=== PATIENT | female | born 1995 | race Caucasian/White ===

== ENCOUNTER → 2020-01-24 | Outpatient (CLI) | payer MEDICAID ==
[~2020-01-24] MED LIST: FERR325T5 PO; KETO75CA PO; NITR-65 PO; PREN1TAB86 PO
--- NOTE | 2020-01-25 11:30 | Diagnostic Imaging Report ---
PROCEDURE: US OB SINGLE FETUS <14 WKS. TECHNIQUE: Multiple real-time grayscale images were obtained over the gravid uterus in various projections. INDICATION: dating. There is an intrauterine gestational sac containing a pole. Middleberg-rump length measurement is 19 mm consistent with 8 weeks 4 days gestation. heart rate was recorded at 167 bpm. There is a small sadaf-gestational sac bleed to the right of gestational sac. The left ovary does contain a 2.4 cm cyst. No free fluid is seen. IMPRESSION: Single live IUP 8 weeks 4 days gestational age with estimated date of confinement sonographically of 08/31/2020. Note is made of a small sadaf-gestational sac hemorrhage. Dictated by: Dictated on workstation # [id number]
== END ==
LOC: RAD 13:30
PROVIDERS: ATTEND Family Medicine
DX: Z34.81 Encounter for supervision of other normal pregnancy, first trimester (principal); Z3A.08 8 weeks gestation of pregnancy
CPT/HCPCS: 76801

== ENCOUNTER → 2020-04-03 | Outpatient (CLI) | payer MEDICAID ==
--- NOTE | 2020-04-03 15:57 | Diagnostic Imaging Report ---
INDICATION: survey. TECHNIQUE: Multiple real-time grayscale images were obtained over the gravid uterus. COMPARISON: 01/24/2020. FINDINGS: There is a single live fetus in a transverse presentation, head to maternal right. heart rate was recorded 132 bpm. Placenta is anterior and to the left. Amniotic fluid volume is normal. survey demonstrates kidneys, bladder and stomach to be unremarkable. brain is unremarkable. There is a four-chamber heart. There is a three-vessel cord with normal insertion. spine is unremarkable. Maternal adnexa are unremarkable. Biometrical measurements are as follows: Biparietal 4.53 cm, age 19 weeks 5 days. Head circumference 16.32 cm, age 19 weeks 1 days. Abdominal circumference 13.21 cm, age 18 weeks 6 days. Femur length 2.93 cm, age 19 weeks 1 days. Sonographic estimate age: 19 weeks 2 days. Sonographic estimated date of delivery: 08/26/2020. Estimated Weight: 264 gm (+/- 39 gm). LMP percentile: 66%. heart rate: 132 beats per minute. number: 1 of 1. IMPRESSION: Single live IUP at 19 weeks 2 days gestational age showing normal interval growth when compared with prior ultrasound. No complicating features are seen. Dictated by: Dictated on workstation # [id number]
== END ==
LOC: RAD 14:48
PROVIDERS: ATTEND Family Medicine
DX: Z34.92 Encounter for supervision of normal pregnancy, unspecified, second trimester (principal); Z3A.19 19 weeks gestation of pregnancy
CPT/HCPCS: 76805

== ENCOUNTER 2020-08-31 14:10 | Inpatient (IN) | payer MEDICAID ==
[2020-08-31] VITALS (40 sets, daily range): BP systolic 99–134; BP diastolic 57–89
[~2020-08-31] VITALS: Ht 157.5 cm; Wt 107.7 kg
[2020-08-31] MEDS ORDERED: LACTATED RINGERS 1,000 ML IV ONE ×2 (14:37→15:45)
[2020-08-31] MEDS ORDERED: D5 LR IV SOLUTION 1,000 ML IV SCH (15:00)
[2020-08-31] MEDS ORDERED: MINERAL OIL CONCENTRATE 99.9% 15 ML UDC TOP PRN (15:00)
[2020-08-31 15:05] LABS: BASOPHILS % (AUTO) 0 % (0-10); EOSINOPHILS # (AUTO) 0.1 10^3/uL (0.0-0.3); EOSINOPHILS % (AUTO) 1 % (0-10); HEMATOCRIT 34 % (35-52); HEMOGLOBIN 11.1 g/dL (11.5-16.0); LYMPHOCYTES # (AUTO) 1.7 10^3/uL (1.0-4.0); LYMPHOCYTES % (AUTO) 15 % (12-44); MEAN CORPUSCULAR HEMOGLOBIN 28 pg (25-34); MEAN CORPUSCULAR HGB CONC 33 g/dL (32-36); MEAN CORPUSCULAR VOLUME 84 fL (80-99); MEAN PLATELET VOLUME 12.1 fL (9.0-12.2); MONOCYTES # (AUTO) 0.7 10^3/uL (0.0-1.0); MONOCYTES % (AUTO) 6 % (0-12); NEUTROPHILS # (AUTO) 8.6 10^3/uL (1.8-7.8); NEUTROPHILS % (AUTO) 77 % (42-75); PLATELET COUNT 162 10^3/uL (130-400); WHITE BLOOD COUNT 11.1 10^3/uL (4.3-11.0)
[2020-08-31] MEDS ORDERED: fentaNYL 2 mcg/ml BUPIVA 0.125 100 ML ONE (15:25)
[2020-08-31] MEDS ORDERED: BUPIVACAINE 0.25% 30 ML (SENSORCAINE) VIAL ONE (15:31)
[2020-08-31] MEDS ORDERED: fentaNYL INJ 100 MCG/2 ML AMP ONE (15:31)
--- NOTE | 2020-08-31 15:40 | History & Physical-OB ---
OB - Chief Complaint & HPI Date/Time Date of Admission: Date of Admission: Aug 31, 2020 at 14:44 Date seen by a Provider: Aug 31, 2020 Time Seen by a Provider: 15:40 Chief Complaint/History OB-Reason for Admission/Chief: Onset of Labor Hx : 2 Hx Para: 1 Expected Date of Delivery: Aug 31, 2020 Gestational Age in Weeks: 40 Gestational Age in Days: 0 Admission Nurse Assessment Rev: Yes History of Labs GBS negative Allergies and Home Medications Allergies Coded Allergies: No Known Drug Allergies (Unverified , 09/26/14) Home Medications Ferrous Sulfate 325 Mg Tablet.dr, 325 MG PO BID, (Reported) Vit W-Ca,Fe,FA(<1 mg) 1 Each Tablet, 1 EACH PO DAILY, (Reported) Patient Home Medication List Home Medication List Reviewed: Yes OB - History Hx of Present Care: Yes Ultrasounds: Normal mid trimester US Obstetrical Complications: None Medical Complications: None Delivery History Hx Blood Disorders: No Adverse Rxn to Tranfusion: No Patient Past Medical History No chronic medical problems Immunizations Tetanus Booster (TDap): Unknown Date of Influenza Vaccine: Mar 07, 2016 OB - Admission Exam Physical Exam HEENT: Moist Membranes Heart: Rhythm Normal Lungs: Clear Abdomen: Gravid Cervical Dilatation: 5cm Effacement: 75% Station: -3 Membranes: Intact Accelerations: Accelerations Present Decelerations: No Decelerations Short Term Variability: Present Type Casting Machine Operator Variability: Average (6-25) Contractions on Admission: 6-10 Minutes Apart Intensity: Moderate Labs Laboratory Tests Test 08/31/20 14:50 Range/Units White Blood Count 11.1 H 4.3-11.0 10^3/uL Red Blood Count 4.01 3.80-5.11 10^6/uL Hemoglobin 11.1 L 11.5-16.0 g/dL Hematocrit 34 L 35-52 % Mean Corpuscular Volume 84 80-99 fL Mean Corpuscular Hemoglobin 28 25-34 pg Mean Corpuscular Hemoglobin Concent 33 32-36 g/dL Red Cell Distribution Width 14.4 10.0-14.5 % Platelet Count 162 130-400 10^3/uL Mean Platelet Volume 12.1 9.0-12.2 fL Immature Granulocyte % (Auto) 1 % Neutrophils (%) (Auto) 77 H 42-75 % Lymphocytes (%) (Auto) 15 12-44 % Monocytes (%) (Auto) 6 0-12 % Eosinophils (%) (Auto) 1 0-10 % Basophils (%) (Auto) 0 0-10 % Neutrophils # (Auto) 8.6 H 1.8-7.8 10^3/uL Lymphocytes # (Auto) 1.7 1.0-4.0 10^3/uL Monocytes # (Auto) 0.7 0.0-1.0 10^3/uL Eosinophils # (Auto) 0.1 0.0-0.3 10^3/uL Basophils # (Auto) 0.0 0.0-0.1 10^3/uL Immature Granulocyte # (Auto) 0.1 0.0-0.1 10^3/uL OB - Assessment/Plan/Diagnosis Assessment Assessment: active labor Admission Dx 1. IUP at term 40 weeks Admission Status: Inpatient Order (span 2 midnights) Reason for Inpatient Admission: L&D Plan Plan: Expectant Management Induction Method: AROM Other Plan -epidural planned JEREMÍAS BARROW MD Aug 31, 2020 15:40
[2020-08-31] MEDS ORDERED: CATHETER FLUSH 10 ML SYR IV PRN (15:45)
[2020-08-31] MEDS ORDERED: NALOXONE 0.4 MG/ML 1 ML (NARCAN) VIAL IV PRN (15:45)
[2020-08-31] MEDS ORDERED: fentaNYL 2 mcg/ml BUPIVA 0.125 100 ML IV SCH (15:45)
[2020-08-31] MEDS ORDERED: OXYTOCIN PRE-MIX DRIP 500 ML IV ONE (17:00)
[2020-08-31] MEDS ORDERED: OXYTOCIN PRE-MIX DRIP 500 ML IV SCH ×2 (17:15→21:00)
[2020-08-31] MEDS ORDERED: LIDOCAINE/EPI 2% 1:200,00 (XYLOCAINE) 10 ML VIAL ONE (20:13)
--- NOTE | 2020-08-31 20:46 | OB Labor & Delivery Record ---
L&D History Date of Service Date of Service: Aug 31, 2020 History Expected Date of Delivery: Aug 31, 2020 Gestational Age in Weeks: 40 Hx : 2 Hx Para: 2 Complications Events: Routine care Operative Indications (Cesarea: N/A-Vaginal Delivery Intrapartal Events: None L&D Stage1 Stage One Onset of Labor - Date: Aug 31, 2020 Onset of Labor - Time: 06:00 Monitors and Tracing Monitor Mode: Internal Heart Rate: 130 Monitor Accelerations: Uniform Monitor Decelerations: Variable Station: -1 Corporate Law Specialist Variability: Average (6-10) Short Term Variability: Present Presentation: Vertex Vital Signs VS - Last 72 Hours, by Label 08/31/20 14:26 Temp 36.8 Pulse 80 Resp 20 B/P (MAP) 122/71 (88) Pulse Ox 97 O2 Delivery Room Air Signs of Distress by FHT Signs of Distress none Rupture of Membranes Spontaneous Ruture of Membrane: No Amniotic Membrane Rupture Time: 16:30 Amniotic Membrane Fluid Desc.: Meconium Stained Vaginal Bleeding Description: None Induction/Anesthesia Epidural Cath Placement - Time: 1600 L&D Stage2 Stage Two Stage II Date: Aug 31, 2020 Stage II Time: 20:28 Monitors and Tracing Monitor Mode: Internal Heart Rate: 130 Monitor Accelerations: Uniform Monitor Decelerations: Variable Corporate Law Specialist Variability: Average (6-10) Short Term Variability: Present Position: Left Occiput Anterior Presentation: Vertex Signs of Distress by FHT Signs of Distress none Cord Descript/Complications Cord Vessel Description: 3 Vessels Delivery Type Delivery Method: Spontaneous Vaginal Anterior Shoulder: Left Episiotomy/Perineal Laceration Laceraction(s)/Extensions: Yes Episiotomy Description: Periurethral Extnsion/lac (bilateral) Condition of Delivery 1 minute Comment: 8 5 minute Comment: 9 Condition of Condition of : Living Exam: No Observed Abnormalities Resuscitation Resuscitation: N/A - Spontaneous Resp L&D Stage3 Stage Three Stage III Date: Aug 31, 2020 Stage III Time: 20:32 Pictocin Pitocin Administration mu/min: 10 Pitocin ml/hr: 10 Pitocin Administration Comment: [id number] OXYTOCIN INFUSION STARTED PER ROUTINE PROTOCOL Placenta Delivery Placenta Delivery: Spontaneous Delivery Summary Summary Estimated blood loss (mL): 200 Condition of Delivery Examined: Cervix Examined Post Hemorrhage: No Intervention Required none JEREMÍAS BARROW MD Aug 31, 2020 20:46
[2020-08-31] MEDS ORDERED: TETANUS,DIPTH,PERTUSS P/F (BOOSTRIX) 0.5 ML VIAL IM ONE (21:00)
[2020-08-31] MEDS ORDERED: WITCH HAZEL(TUCKS) 40 EA JAR TOP PRN (21:00)
[2020-08-31] MEDS ORDERED: BENZOCAINE/MENTHOL (DERMOPLAST) 56 ML CAN TP PRN (21:00)
[2020-08-31] MEDS ORDERED: MEASLES,MUMPS,RUBELLA 1 EA INJ SQ ONE (21:00)
[2020-08-31] MEDS ORDERED: CATHETER FLUSH 10 ML SYR IV SCH ×2 (22:00)
[2020-08-31] MEDS: IBUPROFEN 600 MG (MOTRIN) TAB PO SCH (23:21)
[2020-08-31] MEDS: ACETAMINOPHEN 500 MG TAB (TYLENOL) PO SCH (23:21)
[2020-09-01] MEDS: DOCUSATE SODIUM 100 MG (COLACE) CAP PO SCH ×2 (00:55→09:25)
[2020-09-01 02:00] VITALS: BP 115/78
[2020-09-01 05:54] LABS: BASOPHILS % (AUTO) 0 % (0-10); EOSINOPHILS # (AUTO) 0.1 10^3/uL (0.0-0.3); EOSINOPHILS % (AUTO) 1 % (0-10); HEMATOCRIT 31 % (35-52); LYMPHOCYTES # (AUTO) 1.7 10^3/uL (1.0-4.0); LYMPHOCYTES % (AUTO) 16 % (12-44); MEAN CORPUSCULAR HEMOGLOBIN 28 pg (25-34); MEAN CORPUSCULAR HGB CONC 32 g/dL (32-36); MEAN CORPUSCULAR VOLUME 86 fL (80-99); MEAN PLATELET VOLUME 12.4 fL (9.0-12.2); MONOCYTES # (AUTO) 0.7 10^3/uL (0.0-1.0); MONOCYTES % (AUTO) 7 % (0-12); NEUTROPHILS # (AUTO) 8.1 10^3/uL (1.8-7.8); NEUTROPHILS % (AUTO) 76 % (42-75); PLATELET COUNT 128 10^3/uL (130-400); WHITE BLOOD COUNT 10.6 10^3/uL (4.3-11.0)
[2020-09-01] MEDS: ACETAMINOPHEN 500 MG TAB (TYLENOL) PO SCH ×3 (07:05→18:53)
[2020-09-01] MEDS: IBUPROFEN 600 MG (MOTRIN) TAB PO SCH ×3 (07:06→18:53)
--- NOTE | 2020-09-01 08:16 | Progress Note ---
Subjective Date Seen by a Provider: Sep 01, 2020 Time Seen by a Provider: 08:00 Subjective/Events-last exam no complaints. no significant vaginal bleed Objective Exam Vital Signs Date Time Temp Pulse Resp B/P (MAP) Pulse Ox O2 Delivery O2 Flow Rate FiO2 09/01/20 02:00 36.3 75 18 115/78 (90) Room Air 08/31/20 22:45 75 18 112/71 (85) Room Air 08/31/20 22:30 36.2 67 18 113/72 (86) Room Air 08/31/20 22:15 67 18 108/66 (80) Room Air 08/31/20 22:00 68 18 114/71 (85) Room Air 08/31/20 21:45 36.1 60 18 109/75 (86) Room Air 08/31/20 21:30 68 18 117/70 (86) Room Air 08/31/20 21:15 36.0 77 18 119/74 (89) Room Air 08/31/20 20:45 93 18 134/89 (104) Room Air 08/31/20 20:30 93 18 127/86 (100) Room Air 08/31/20 20:15 65 18 125/60 (81) Room Air 08/31/20 20:00 73 18 99/57 (71) Room Air 08/31/20 19:45 71 18 103/58 (73) Room Air 08/31/20 19:30 70 18 114/75 (88) Room Air 08/31/20 19:15 70 18 126/79 (95) 99 Room Air 08/31/20 19:00 37.0 70 18 126/79 (95) 99 Room Air 08/31/20 18:45 82 18 123/65 (84) 98 Room Air 08/31/20 18:30 80 18 128/72 (90) 99 Room Air 08/31/20 18:17 69 18 117/77 (90) 100 Room Air 08/31/20 18:00 36.5 68 18 119/78 (92) 100 Non Rebreather 15.00 08/31/20 17:45 69 18 119/75 (90) 100 Non Rebreather 15.00 08/31/20 17:30 70 18 114/66 (82) 98 Non Rebreather 15.00 08/31/20 17:15 83 18 112/69 (83) 99 Room Air 08/31/20 17:00 37.3 75 18 118/66 (83) 98 Room Air 08/31/20 16:46 110 18 120/68 (85) 99 Room Air 08/31/20 16:43 88 18 112/77 (89) 99 Room Air 08/31/20 16:40 83 18 108/78 (88) 99 Room Air 08/31/20 16:37 85 18 126/73 (90) 99 Room Air 08/31/20 16:34 81 18 130/74 (92) 98 Room Air 08/31/20 16:31 98 18 123/80 (94) 98 Room Air 08/31/20 16:28 91 18 125/69 (87) 98 Room Air 08/31/20 16:24 93 18 127/65 (85) 99 Room Air 08/31/20 16:22 89 18 131/67 (88) 99 Room Air 08/31/20 16:20 80 18 130/69 (89) 99 Room Air 08/31/20 16:17 103 98 Room Air 08/31/20 16:14 82 18 116/68 (84) 99 Room Air 08/31/20 16:11 95 18 125/74 (91) 98 Room Air 08/31/20 16:08 80 18 126/68 (87) 98 Room Air 08/31/20 16:05 97 18 127/76 (93) 98 Room Air 08/31/20 15:57 37.0 98 20 129/85 (100) 98 Room Air 08/31/20 15:30 36.8 80 20 97 Room Air 08/31/20 14:26 36.8 80 20 122/71 (88) 97 Room Air I & O 09/01/20 07:00 Intake Total 1500 ml Balance 1500 ml Capillary Refill : Less Than 3 Seconds General Appearance: No Apparent Distress Results Lab Laboratory Tests 08/31/20 14:50: White Blood Count 11.1H, Red Blood Count 4.01, Hemoglobin 11.1L, Hematocrit 34L, Mean Corpuscular Volume 84, Mean Corpuscular Hemoglobin 28, Mean Corpuscular Hemoglobin Concent 33, Red Cell Distribution Width 14.4, Platelet Count 162, Mean Platelet Volume 12.1, Immature Granulocyte % (Auto) 1, Neutrophils (%) (Auto) 77H, Lymphocytes (%) (Auto) 15, Monocytes (%) (Auto) 6, Eosinophils (%) (Auto) 1, Basophils (%) (Auto) 0, Neutrophils # (Auto) 8.6H, Lymphocytes # (Auto) 1.7, Monocytes # (Auto) 0.7, Eosinophils # (Auto) 0.1, Basophils # (Auto) 0.0, Immature Granulocyte # (Auto) 0.1 09/01/20 05:34: White Blood Count 10.6, Red Blood Count 3.60L, Hemoglobin 10.0L, Hematocrit 31L, Mean Corpuscular Volume 86, Mean Corpuscular Hemoglobin 28, Mean Corpuscular Hemoglobin Concent 32, Red Cell Distribution Width 14.5, Platelet Count 128L, Mean Platelet Volume 12.4H, Immature Granulocyte % (Auto) 1, Neutrophils (%) (Auto) 76H, Lymphocytes (%) (Auto) 16, Monocytes (%) (Auto) 7, Eosinophils (%) (Auto) 1, Basophils (%) (Auto) 0, Neutrophils # (Auto) 8.1H, Lymphocytes # (Auto) 1.7, Monocytes # (Auto) 0.7, Eosinophils # (Auto) 0.1, Basophils # (Auto) 0.0, Immature Granulocyte # (Auto) 0.1 Assessment/Plan Assessment/Plan Assess & Plan/Chief Complaint 1. S/P day 1 -routine PP care orders -home in the am of 09/02 JEREMÍAS BARROW MD Sep 01, 2020 08:16
[2020-09-01 09:15] VITALS: BP 105/83
[2020-09-01] MEDS: FERROUS SULF 325 MG (IRON) TAB PO SCH (09:25)
[2020-09-01] MEDS: PRENATAL VITAMIN 1 EA TAB PO SCH (09:25)
--- NOTE | 2020-09-01 10:54 | Anesthesia-Regional Post-Op ---
Regional Patient Condition Mental Status: Alert, Oriented x3 Circulation: Same as Pre-Op Headache: Absent Sensation: Full Recovery Motor Block: Absent Post Op Complications Complications None Follow Up Care/Instructions Patient Instructions None needed. Anesthesia/Patient Condition Patient is doing well, no complaints, stable vital signs, no apparent adverse anesthesia problems. No complications reported per nursing. D/C home per [facility] Criteria: CAREY Lopez CRNA Sep 01, 2020 10:54
[2020-09-01 13:00] VITALS: BP 110/66
[2020-09-01 17:15] VITALS: BP 117/63
[2020-09-01 19:40] VITALS: BP 118/79
[2020-09-02 02:15] VITALS: BP 117/81
[2020-09-02] MEDS: IBUPROFEN 600 MG (MOTRIN) TAB PO SCH ×2 (02:16→08:00)
--- NOTE | 2020-09-02 06:55 | Discharge Summary ---
Diagnosis/Chief Complaint Date of Admission Aug 31, 2020 at 14:44 Date of Discharge Discharge Date: Sep 02, 2020 Discharge Time: 10:00 Admission Diagnosis Admission Diagnosis 1. Intrauterine at term 40 weeks gestation Discharge Diagnosis 1. Intrauterine at term 40 weeks gestation Reason Hospital Visit 25-year-old 2 now term 2 who initially presented to labor and delivery during the afternoon of August 31, 2020 in labor. Her due date was August 31, 2020 and had uneventful course. Her GBS status at 36 weeks was noted to be negative Discharge Summary-OBS Procedures 1. Epidural per anesthesia 2. Spontaneous vaginal delivery Discharge Physical Examination Allergies: Coded Allergies: No Known Drug Allergies (Unverified , 09/26/14) Vitals & I&Os Vital Signs Date Time Temp Pulse Resp B/P (MAP) Pulse Ox O2 Delivery O2 Flow Rate FiO2 09/02/20 02:15 36.5 64 18 117/81 (93) 97 Room Air 08/31/20 18:00 15.00 General Appearance: No Acute Distress Respiratory: Clear to Auscultation Cardiovascular: Regular Rate Abdominal: Soft (With uterus firm) Neuro: Normal Speech Psych/Mental Status: Mental Status NL, Mood NL Hospital Course Was the Problem List Reviewed?: Yes Patient was admitted during the afternoon of August 31, 2020 in labor. She underwent labor course and eventually delivered a term viable male during the evening of August 31. Infant received Apgars of 8 at 1 minute and 9 at 5 minutes. See labor and delivery note for full details. Following delivery patient underwent routine care orders. She had hemoglobin drawn in the morning of September 01, 2020 which was noted to be 10.0. This hemoglobin was compared to admission of 11.1. Patient was without any complications during the remainder of hospital stay. She tolerated regular diet. She was without shortness of breath or leg pain. She was ready for dismissal during the morning of September 02, 2020. Discharge Instructions to patient/family Please see electronic discharge instructions given to patient. Discharge Medications Reviewed and agree with Discharge Medication list on patient's Discharge Instruction sheet JEREMÍAS BARROW MD Sep 02, 2020 06:55
--- NOTE | 2020-09-02 06:57 | Discharge Inst-Women's Service ---
Discharge Inst-Women's Serv Depart Medication/Instructions Instructions May have ibuprofen 200 mg [id number] tablets. Take 2 or 3 ibuprofen tablets every 6 hours as needed for cramps. Problems Reviewed?: Yes Consults/Follow Up Additional Follow Up: Yes (With Dr. Barrow in 6 weeks) Activity Driving Instructions: You May Drive Nothing Inside Vagina: No [place] (For 6 weeks) Diet Discharge Diet: Regular Diet Return to The Hospital For: As below Symptoms to Report to : Bleeding Excessive, Pain Increased, Fever Over 101 Degrees F, Vaginal Discharge Foul For Any Problems or Questions: Contact Your Physician JEREMÍAS BARROW MD Sep 02, 2020 06:57
[2020-09-02 07:58] VITALS: BP 114/71
[2020-09-02] MEDS: FERROUS SULF 325 MG (IRON) TAB PO SCH (08:00)
[2020-09-02] MEDS: DOCUSATE SODIUM 100 MG (COLACE) CAP PO SCH (08:00)
[2020-09-02] MEDS: PRENATAL VITAMIN 1 EA TAB PO SCH (08:00)
== END 2020-09-02 11:20 | disposition home or self-care (01) | DRG 807 ==
LOC: LDRP 14:10 → WSo 14:10 → LDRP 14:44
PROVIDERS: ADMIT Family Medicine; ATTEND Family Medicine
PROC: 10E0XZZ Delivery of Products of Conception, External Approach (ICD-10-PCS; principal; 2020-08-31)
DX: O48.0 Post-term pregnancy (principal); Z37.0 Single live birth; O71.82 Other specified trauma to perineum and vulva; Z3A.40 40 weeks gestation of pregnancy; O77.0 Labor and delivery complicated by meconium in amniotic fluid; Z23 Encounter for immunization
CPT/HCPCS: 36415; 85025; 86850; 86900; 86901; 90715

== ENCOUNTER → 2022-01-06 | Outpatient (CLI) | payer MEDICAID ==
--- NOTE | 2022-01-06 17:57 | Diagnostic Imaging Report ---
INDICATION: Left knee pain post injury. AP, oblique, and lateral views of the left knee are obtained. FINDINGS: No fracture or acute bony abnormality is seen. Joint spaces are unremarkable. IMPRESSION: Negative left knee. Dictated by: Dictated on workstation # [id number]
== END ==
LOC: RAD 15:38
PROVIDERS: ATTEND Family Medicine
DX: M25.562 Pain in left knee (principal); Z87.828 Personal history of other (healed) physical injury and trauma
CPT/HCPCS: 73562

== ENCOUNTER 2022-10-07 16:40 | Emergency (ER) | payer MEDICAID ==
[~2022-10-07] VITALS: Ht 157 cm; Wt 89.0 kg
[2022-10-07] MEDS ORDERED: CLINDAMYCIN 600 MG/50 ML IVPB 50 ML IV ONE (17:00)
[2022-10-07] MEDS ORDERED: NS IV 1000 ML 1,000 ML IV STA (17:02)
--- NOTE | 2022-10-07 17:04 | ED Abdominal Pain ---
General Chief Complaint: Abdominal/GI Problems Stated Complaint: VOMITING|KIDNEY PAIN Nursing Triage Note: WAS SEEN AT [facility] ON WEDNESDAY AND DR BARROW WEDNESDAY. DX WITH STREP AND PUT ON AUGMENTIN. FOR STREP. PT STATES DR THOUGHT HER STREP WAS GOING INTO HER KIDNEYS BECUASE OF BACK PAIN SHE WAS HAVING. HE DID A UA AND CX BUT THEY ARE NOT BACK YET. PT IS NOW VOMITING AND UNABLE TO KEEP THINGS DOWN. Source of Information: Patient Exam Limitations: No Limitations (GLORIA GUEVARA) History of Present Illness Date Seen by Provider: October 07, 2022 Time Seen by Provider: 17:03 Initial Comments Patient is a 27-year-old female who presents to the ED for bilateral flank pain and sore throat with vomiting. States symptoms started in her lower back on Wednesday. Dull achy pain. Started having fevers, chills body aches. Went to [facility] diagnosed with UTI was placed on antibiotic. Symptoms became worse. She also had associated sore throat. Diagnosed with strep throat on Wednesday was placed on Augmentin. She has taken 2 days worth of Augmentin but states she cannot keep the medication down secondary to vomiting. She states her primary care physician Dr. Barrow ordered a outpatient 2-day urine culture concerning for infection in her kidneys. She states pain is radiating into the hip since 2 days. She states she is continue having chills, body aches. She is concerned as she has not been able to eat or drink. She reports continued sore throat. Denies difficulty breathing, cough, shortness of breath, neck swelling, facial swelling, headache or dizziness, dysuria, hematuria, increased urine frequency., (GLORIA GUEVARA) Allergies and Home Medications Allergies Coded Allergies: No Known Drug Allergies (Unverified , 09/26/14) Patient Home Medication List Home Medication List Reviewed: Yes (GLORIA GUEVARA) Ondansetron (Ondansetron Odt) 4 Mg Tab.rapdis, 4 MG SL Q4H PRN for NAUSEA/VOMITING Prescribed by: NAYELI MAIN on 10/07/221902 Prednisone (Prednisone) 20 Mg Tab, 40 MG PO DAILY Prescribed by: NAYELI MAIN on 10/07/221902 Discontinued Medications Ferrous Sulfate (Ferrous Sulfate) 325 Mg Tablet.dr, 325 MG PO BID, (Reported) Discontinued Reason: No Longer Taking Entered as Reported by: CRISTINA EDOUARD on 09/15/152314 Last Action: Discontinued Vit W-Ca,Fe,FA(<1 mg) ( Vitamins) 1 Each Tablet, 1 EACH PO DAILY, (Reported) Discontinued Reason: No Longer Taking Entered as Reported by: CRISTINA EDOUARD on 09/15/152314 Last Action: Discontinued Review of Systems Review of Systems Constitutional: chills; No diaphoresis; fever, malaise, weakness EENTM: No Blurred Vision, No Double Vision, No Eye Pain Respiratory: Denies Cough, Denies Shortness of Air, Denies SOA at Rest Cardiovascular: Denies Chest Pain Gastrointestinal: Denies Abdominal Pain, Denies Diarrhea; Nausea, Vomiting Genitourinary: Denies Burning, Denies Discharge (GLORIA GUEVARA) All Other Systems Reviewed Negative Unless Noted: Yes (GLORIA GUEVARA) Past Xnfmjio-Otybwq-Ibzxzv Hx Patient Social History Tobacco Use?: No Substance use?: Yes Substance type: Marijuana Alcohol Use?: Yes Alcohol Frequency: Rarely (GLORIA GUEVARA) Immunizations Up To Date Tetanus Booster (TDap): Unknown PED Vaccines UTD: Yes COVID19 Vaccine Client Services Associate: CARLENE (GLORIA GUEVARA) Seasonal Allergies Seasonal Allergies: No (GLORIA GUEVARA) Past Medical History Asthma Currently Using CPAP: No Currently Using BIPAP: No Last Menstrual Period: Sep 24, 2022 Reproductive Disorders: No Female Reproductive Disorders: Denies Sexually Transmitted Disease: No HIV/AIDS: No Adverse Reaction/Blood Tranf: No (GLORIA GUEVARA) Family Medical History Alcoholism 19 FATHER Drug abuse 19 FATHER FH: kidney failure 19 MOTHER Hypertension 19 FATHER Severe allergy 19 MOTHER Physical Exam Vital Signs Vital Signs - First Documented 10/07/22 16:45 Temp 36.6 Pulse 87 Resp 16 B/P (MAP) 122/78 (93) Pulse Ox 98 O2 Delivery Room Air (CHRISTIAN ZELAYA MD) Vital Signs Capillary Refill : Less Than 3 Seconds (GLORIA GUEVARA) Height/Weight/BMI Height: 5'2.00" Weight: 210lbs. 8.0oz. [id number]; 36.00 BMI Method:Actual General Appearance: WD/WN, no apparent distress HEENT: PERRL/EOMI, normal ENT inspection, TMs normal, pharynx normal Neck: non-tender, full range of motion, supple, normal inspection Respiratory: chest non-tender, lungs clear, normal breath sounds, no respiratory distress, no accessory muscle use Cardiovascular: regular rate, rhythm, no edema, no gallop, no JVD Gastrointestinal: normal bowel sounds, non tender, soft, no pulsatile mass Extremities: normal range of motion, non-tender, normal inspection, no pedal edema Back: no vertebral tenderness, CVA tenderness (R), CVA tenderness (L) 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, no motor/sensory deficits, alert, normal mood/affect (GLORIA GUEVARA) Progress/Results/Core Measures Results/Orders Lab Results Laboratory Tests Test 10/07/22 17:15 10/07/22 17:24 10/07/22 17:27 Range/Units White Blood Count 5.6 4.3-11.0 10^3/uL Red Blood Count 4.98 3.80-5.11 10^6/uL Hemoglobin 14.1 11.5-16.0 g/dL Hematocrit 41 35-52 % Mean Corpuscular Volume 82 80-99 fL Mean Corpuscular Hemoglobin 28 25-34 pg Mean Corpuscular Hemoglobin Concent 35 32-36 g/dL Red Cell Distribution Width 13.0 10.0-14.5 % Platelet Count 204 130-400 10^3/uL Mean Platelet Volume 10.7 9.0-12.2 fL Immature Granulocyte % (Auto) 0 % Neutrophils (%) (Auto) 62 42-75 % Lymphocytes (%) (Auto) 28 12-44 % Monocytes (%) (Auto) 9 0-12 % Eosinophils (%) (Auto) 0 0-10 % Basophils (%) (Auto) 0 0-10 % Neutrophils # (Auto) 3.4 1.8-7.8 10^3/uL Lymphocytes # (Auto) 1.6 1.0-4.0 10^3/uL Monocytes # (Auto) 0.5 0.0-1.0 10^3/uL Eosinophils # (Auto) 0.0 0.0-0.3 10^3/uL Basophils # (Auto) 0.0 0.0-0.1 10^3/uL Immature Granulocyte # (Auto) 0.0 0.0-0.1 10^3/uL Neutrophils % (Manual) 53 % Lymphocytes % (Manual) 31 % Monocytes % (Manual) 6 % Band Neutrophils 7 % Atypical Lymphocytes 3 % Platelet Estimate NORMAL Blood Morphology Comment NORMAL Sodium Level 139 135-145 MMOL/L Potassium Level 3.4 L 3.6-5.0 MMOL/L Chloride Level 104 98-107 MMOL/L Carbon Dioxide Level 21 21-32 MMOL/L Anion Gap 14 5-14 MMOL/L Blood Urea Nitrogen 10 7-18 MG/DL Creatinine 0.71 0.60-1.30 MG/DL Estimat Glomerular Filtration Rate 121 BUN/Creatinine Ratio 14 Glucose Level 81 70-105 MG/DL Calcium Level 8.9 8.5-10.1 MG/DL Corrected Calcium 8.6 8.5-10.1 MG/DL Total Bilirubin 1.3 H 0.1-1.0 MG/DL Aspartate Amino Transf (AST/SGOT) 31 5-34 U/L Alanine Aminotransferase (ALT/SGPT) 25 0-55 U/L Alkaline Phosphatase 72 40-136 U/L Total Protein 7.9 6.4-8.2 GM/DL Albumin 4.4 3.2-4.5 GM/DL Lipase 14 8-78 U/L Urine Color DARK YELLOW Urine Clarity CLEAR Urine pH 6.0 5-9 Urine Specific [place] >=1.030 1.016-1.022 Urine Protein 1+ H NEGATIVE Urine Glucose (UA) NEGATIVE NEGATIVE Urine Ketones 3+ H NEGATIVE Urine Nitrite NEGATIVE NEGATIVE Urine Bilirubin 2+ H NEGATIVE Urine Urobilinogen 1.0 < = 1.0 MG/DL Urine Leukocyte Esterase TRACE H NEGATIVE Urine RBC (Auto) TRACE-I H NEGATIVE Urine RBC 5-10 H /HPF Urine WBC 2-5 /HPF Urine Squamous Epithelial Cells 25-50 H /HPF Urine Crystals PRESENT H /LPF Urine Amorphous Sediment RARE GELACIO URATES H /LPF Urine Bacteria MODERATE H /HPF Urine Casts NONE /LPF Urine Mucus LARGE H /LPF Urine Culture Indicated NO Urine Test NEGATIVE NEGATIVE (CHRISTIAN ZELAYA MD) Vital Signs/I&O 10/07/22 10/07/22 16:45 19:33 Temp 36.6 36.6 Pulse 87 80 Resp 16 16 B/P (MAP) 122/78 (93) 106/68 Pulse Ox 98 100 O2 Delivery Room Air Room Air (CHRISTIAN ZELAYA MD) Blood Pressure Mean: 93 Departure Communication (PCP) Reviewed previous ER visits, H&P, lab testing. Currently on Augmentin. She has taken 2 days worth of Augmentin prescribed by Dr. Barrow yesterday. Patient Was diagnosed with UTI on Wednesday by [facility]. she Was placed on Macrobid and switch to augmentin yesterday secondary to positive strep. She does report sore throat difficulty swallowing with vomiting not able to keep her antibiotics down. She states she feels dehydrated. She is reports bilateral flank pain since wednesday with radiation to the hips today. Due to current complaint CBC, CMP, lipase, urinalysis, CT abdomen pelvis was ordered. She had a urine test performed by her PCP concerning for glomerular nephritis. Patient vital signs stable. CBC unremarkable. Chemistry unremarkable. Potassium 3.4. Normal kidney function. She was given oral potassium 20 ml equivalent. Patient was started on a liter of fluid. Patient was given IV Zofran for nausea. She was given IV Toradol 30 mg for pain. Patient oral pharynx with erythema, swelling and exudate. No uvula deviation. Tolerating secretions. Do not suspect tonsillar abscess or retropharyngeal abscess. Cervical adenopathy. No evidence of William angina. CT scan of the neck soft tissue was held. She was given oral Decadron due to swollen tonsil. Patient was given IV clindamycin here for the strep. CT abdomen pelvis did not show any acute abnormality. Urinalysis did note protein, ketones, leukocytes, red blood cells, bacteria with squamous cell 25-50. Likely contaminate. Did not flag for culture. Urine did not note any red blood cell cast. Normal kidney function, white blood count. No evidence of rash. No evidence of hypertension, fever, or ext edema. Only indicators for glomerularnephritis would be the hematuria and proteinuria at this time. Not necessarily convinced at this time with other reassuring lab work. did add ASO titer. Patient received liter fluid here. Recommend follow-up with primary care physician with urinalysis and lab work. She requesting to stay on the Augmentin. Did suggest switching to clindamycin. She is requesting Zofran for the Augmentin which may be causing her to feel nauseous. Will discharge with taper prednisone. If any worsening fever, decreased urine output, edema, continued pain to return back to ED. discussed patient with Dr. Barrow her PCP regarding the results. He recommends following up outpatient with him for further evaluation. (GLORIA GUEVARA) Impression Primary Impression: Flank pain Additional Impression: Strep pharyngitis Disposition: HOME, SELF-CARE Condition: Stable Departure-Patient Inst. Decision time for Depature: 19:02 (GLORIA GUEVARA) Referrals: JEREMÍAS BARROW MD (PCP/Family) Primary Care Physician Patient Instructions: Strep Throat ED Scripts Prednisone (Prednisone) 20 Mg Tab 40 MG PO DAILY for 8 Days, #12 TAB Prov: GLORIA GUEVARA 10/07/22 Ondansetron (Ondansetron Odt) 4 Mg Tab.rapdis 4 MG SL Q4H PRN for NAUSEA/VOMITING, #8 TAB Prov: GLORIA GUEVARA 10/07/22 ATTENDING PHYSICIAN NOTE: I was physically present as attending physician in the emergency department during the care of this patient, but I was not directly involved in the decision making or delivery of care for this patient. (CHRISTIAN ZELAYA MD) GLORIA GUEVARA October 07, 2022 17:04 CHRISTIAN ZELAYA MD October 09, 2022 06:30
[2022-10-07] MEDS ORDERED: ONDANSETRON 4 MG/2 ML (SDV) Z0FRAN IVP ONE (17:15)
[2022-10-07] MEDS ORDERED: KETOROLAC 30 MG/ML VIAL IVP ONE (17:15)
[2022-10-07 17:28] LABS: BASOPHILS % (AUTO) 0 % (0-10); EOSINOPHILS % (AUTO) 0 % (0-10); HEMATOCRIT 41 % (35-52); HEMOGLOBIN 14.1 g/dL (11.5-16.0); LYMPHOCYTES # (AUTO) 1.6 10^3/uL (1.0-4.0); LYMPHOCYTES % (AUTO) 28 % (12-44); MEAN CORPUSCULAR HEMOGLOBIN 28 pg (25-34); MEAN CORPUSCULAR HGB CONC 35 g/dL (32-36); MEAN CORPUSCULAR VOLUME 82 fL (80-99); MEAN PLATELET VOLUME 10.7 fL (9.0-12.2); MONOCYTES # (AUTO) 0.5 10^3/uL (0.0-1.0); MONOCYTES % (AUTO) 9 % (0-12); NEUTROPHILS # (AUTO) 3.4 10^3/uL (1.8-7.8); NEUTROPHILS % (AUTO) 62 % (42-75); PLATELET COUNT 204 10^3/uL (130-400); WHITE BLOOD COUNT 5.6 10^3/uL (4.3-11.0)
[2022-10-07] MEDS ORDERED: IOHEXOL 350 MG/ML 100 ML (OMNIPAQUE 350) VIAL IV ONE (17:30)
[2022-10-07] MEDS ORDERED: HOLD METFORMIN - RECEIVED CONTRAST 20 ML VIAL IV SCH (17:30)
[2022-10-07] MEDS ORDERED: NS 100 ML (IVPB) BAG IV ONE (17:30)
[2022-10-07 17:34] LABS: CLARITY,URINE CLEAR; COLOR,URINE DARK YELLOW; GLUCOSE, URINE (UA) NEGATIVE (NEGATIVE); KETONES,URINE 3+ (NEGATIVE); LEUKOCYTE ESTERASE ,URINE TRACE (NEGATIVE); NITRITE,URINE NEGATIVE (NEGATIVE); PROTEIN,URINE 1+ (NEGATIVE)
[2022-10-07 17:40] LABS: ALBUMIN 4.4 GM/DL (3.2-4.5); POTASSIUM 3.4 MMOL/L (3.6-5.0)
[2022-10-07 17:41] LABS: CALCIUM 8.9 MG/DL (8.5-10.1)
[2022-10-07 17:42] LABS: TOTAL PROTEIN 7.9 GM/DL (6.4-8.2)
[2022-10-07 17:44] LABS: BILIRUBIN,TOTAL 1.3 MG/DL (0.1-1.0)
[2022-10-07 17:46] LABS: CREATININE SERUM 0.71 MG/DL (0.60-1.30)
[2022-10-07 17:59] LABS: AMORPHOUS SEDIMENT,UR RARE AMOR URATES /LPF; BACTERIA,URINE MODERATE /HPF; SQUAMOUS EPITHELIAL CELL,UR 25-50 /HPF
[2022-10-07 18:00] LABS: BILIRUBIN,URINE 2+ (NEGATIVE)
--- NOTE | 2022-10-07 18:05 | Diagnostic Imaging Report ---
PROCEDURE: CT abdomen and pelvis with contrast. TECHNIQUE: Multiple contiguous axial images were obtained through the abdomen and pelvis after administration of intravenous contrast. Auto Exposure Controls were utilized during the CT exam to meet ALARA standards for radiation dose reduction. All CT scans use one or more of the following dose optimizing techniques: automated exposure control, MA and/or KvP adjustment based on patient size and exam type or iterative reconstruction. INDICATION: Back pain. COMPARISON: None FINDINGS: Included views of the chest illustrate no significant abnormality. The liver, spleen, pancreas, adrenal glands are normal. The kidneys are normal. The appendix is normal. Bowel is nondistended. There are scattered diverticula within the sigmoid colon without evidence of acute diverticulitis. The urinary bladder is normal. The aorta and IVC are normal. No free air, loculated fluid collections, or ascites. Soft tissues are normal. The osseous structures are normal. IMPRESSION: No findings in the abdomen or pelvis. No nephrolithiasis or hydronephrosis. Scattered diverticula in the colon without evidence of acute diverticulitis. Dictated by: Dictated on workstation # [id number]
[2022-10-07 18:41] LABS: ATYPICAL LYMPHOCYTES 3 %; BAND NEUTROPHILS 7 %; LYMPHOCYTES % (MANUAL) 31 %; MONOCYTES % (MANUAL) 6 %; NEUTROPHILS % (MANUAL) 53 %; PLATELET ESTIMATE NORMAL; RBC MORPH NORMAL
[2022-10-07] MEDS ORDERED: PRD20T PO (19:03)
[2022-10-07] MEDS ORDERED: ONDA4TAB11 SL (19:03)
[2022-10-07] MEDS ORDERED: KCL 20 MEQ TAB (K-DUR) PO ONE (19:15)
[2022-10-07 19:33] VITALS: BP 106/68
== END 2022-10-07 19:34 | disposition home or self-care (01) ==
LOC: EDUNIT# 16:40 → ER 16:42
DX: M54.50 Low back pain, unspecified (principal); J02.0 Streptococcal pharyngitis; N39.0 Urinary tract infection, site not specified; E87.6 Hypokalemia; R59.0 Localized enlarged lymph nodes
CPT/HCPCS: 36415; 74177; 80053; 81000; 83690; 84703; 85007; 85027; 86060

== ENCOUNTER 2022-10-13 22:14 | Emergency (ER) | payer MEDICAID ==
[~2022-10-13] VITALS: Ht 157.5 cm; Wt 90.0 kg
[~2022-10-13 22:14] MED LIST changes: +ONDA4TAB11 SL; +PRD20T PO
--- NOTE | 2022-10-13 22:38 | ED Back Pain ---
General Chief Complaint: Back Problems Stated Complaint: LOWER BACK PAIN|STOMACH PAIN Nursing Triage Note: Pt presents with c/o lower back pain that has gradually worsened throughout the day. She reports she's been getting over an illness, has been very fatigued. She's been taking augmentin and just finished steroids. Source of Information: Patient Exam Limitations: No Limitations History of Present Illness Date Seen by Provider: October 13, 2022 Time Seen by Provider: 22:25 Initial Comments 27-year-old female presents emergency department today for low back pain. Symptoms present for about a week now. She initially was seen at the [facility] clinic and diagnosed with a urinary tract infection, started on Macrobid. She was subsequently seen at her primary care doctor's office and found to have strep and changed to Augmentin. She was also started on steroids. Her back pain had improved. She ran out of steroids yesterday, had increasing back pain this evening. No urinary symptoms. No changes in bowel or bladder habits. No known injury. No weakness numbness or tingling of her bilateral lower extremities. She did have a full work-up including CT of the abdomen and pelvis, renal stone protocol on 10/07. All other systems reviewed and negative except documented per HPI. Voice recognition software was used to help create this chart Allergies and Home Medications Allergies Coded Allergies: No Known Drug Allergies (Unverified , 09/26/14) Patient Home Medication List Home Medication List Reviewed: Yes Ondansetron (Ondansetron Odt) 4 Mg Tab.rapdis, 4 MG SL Q4H PRN for NAUSEA/VOMITING Prescribed by: NAYELI MAIN on 10/07/221902 Prednisone (Prednisone) 20 Mg Tab, 40 MG PO DAILY Prescribed by: NAYELI MAIN on 10/07/221902 Discontinued Medications Ferrous Sulfate (Ferrous Sulfate) 325 Mg Tablet., 325 MG PO BID, (Reported) Discontinued Reason: No Longer Taking Entered as Reported by: CRISTINA EDOUARD on 09/15/152314 Vit W-Ca,Fe,FA(<1 mg) ( Vitamins) 1 Each Tablet, 1 EACH PO DAILY, (Reported) Discontinued Reason: No Longer Taking Entered as Reported by: CRISTINA EDOUARD on 09/15/152314 Review of Systems Constitutional: see HPI Past Koscylz-Grjkdf-Xqjbmz Hx Patient Social History Tobacco Use?: No Use of E-Cig and/or Vaping dev: No Substance use?: No Alcohol Use?: No Immunizations Up To Date Tetanus Booster (TDap): Unknown PED Vaccines UTD: Yes Influenza Vaccine Up-to-Date: No; Not Current First/Initial COVID19 Vaccinat: UNKNOWN Second COVID19 Vaccination Tin: UNKNOWN Third COVID19 Vaccination Date: UNKNOWN Seasonal Allergies Seasonal Allergies: No Past Medical History Asthma Currently Using CPAP: No Currently Using BIPAP: No Last Menstrual Period: Sep 24, 2022 Reproductive Disorders: No Female Reproductive Disorders: Denies Sexually Transmitted Disease: No HIV/AIDS: No Adverse Reaction/Blood Tranf: No Family Medical History Alcoholism 19 FATHER Drug abuse 19 FATHER FH: kidney failure 19 MOTHER Hypertension 19 FATHER Severe allergy 19 MOTHER Physical Exam Vital Signs Vital Signs - First Documented 10/13/22 22:21 Temp 36.4 Pulse 65 Resp 18 B/P (MAP) 114/68 (83) Capillary Refill : Less Than 3 Seconds Height, Weight, BMI Height: 5'2.00" Weight: 210lbs. 8.0oz. [id number]; 36.00 BMI Method:Actual General Appearance: No Apparent Distress, WD/WN HEENT: Normal ENT Inspection, Pharynx Normal Neck: Normal Inspection, Supple Cardiovascular: Regular Rate, Rhythm, No Murmur, Normal Peripheral Pulses Respiratory: Chest Non Tender, Lungs Clear, Normal Breath Sounds, No Accessory Muscle Use, No Respiratory Distress Gastrointestinal: Normal Bowel Sounds, No Organomegaly, No Pulsatile Mass, Non Tender, Soft Back: Normal Inspection, No CVA Tenderness, No Vertebral Tenderness, Other (Unable to elicit tenderness on exam.) Extremity: Normal Capillary Refill, Normal Inspection, Normal Range of Motion, Non Tender, No Calf Tenderness Neurologic/Psychiatric: Alert, Oriented x3, No Motor/Sensory Deficits Progress/Results/Core Measures Results/Orders Lab Results Laboratory Tests Test 10/13/22 22:43 Range/Units Urine Color YELLOW Urine Clarity SL CLOUDY Urine pH 8.0 5-9 Urine Specific [place] 1.010 L 1.016-1.022 Urine Protein NEGATIVE NEGATIVE Urine Glucose (UA) NEGATIVE NEGATIVE Urine Ketones NEGATIVE NEGATIVE Urine Nitrite NEGATIVE NEGATIVE Urine Bilirubin NEGATIVE NEGATIVE Urine Urobilinogen 0.2 < = 1.0 MG/DL Urine Leukocyte Esterase NEGATIVE NEGATIVE Urine RBC (Auto) NEGATIVE NEGATIVE Urine RBC NONE /HPF Urine WBC 0-2 /HPF Urine Squamous Epithelial Cells 5-10 /HPF Urine Crystals PRESENT H /LPF Urine Amorphous Sediment LARGE GELACIO PHOSPHATE H /LPF Urine Bacteria TRACE /HPF Urine Casts NONE /LPF Urine Mucus NEGATIVE /LPF Urine Culture Indicated NO My Orders Orders - KATHY ROJAS DO Ketorolac Injection (Toradol Injection) (10/13/22 22:45) Urinalysis (10/13/22 22:35) Urine Bedside (10/13/22 22:35) Medications Given in ED Current Medications Medications Dose Ordered Sig/Valentín Route Start Time Stop Time Status Last Admin Dose Admin Ketorolac Tromethamine 15 mg ONCE ONCE IM 10/13/22 22:45 10/13/22 22:46 DC 10/13/22 22:43 15 MG Vital Signs/I&O 10/13/22 22:21 Temp 36.4 Pulse 65 Resp 18 B/P (MAP) 114/68 (83) Blood Pressure Mean: 83 Departure Impression Primary Impression: Low back pain Qualified Codes: M54.50 - Low back pain, unspecified Disposition: HOME, SELF-CARE Condition: Stable Departure-Patient Inst. Referrals: JEREMÍAS BARROW MD (PCP/Family) Primary Care Physician Patient Instructions: Low Back Pain in Adults Add. Discharge Instructions: No emergent medical conditions are identified. Should your symptoms persist I recommend you follow-up with your primary care doctor. Anti-inflammatory medications are likely best for this type of pain. I recommend Aleve as needed. Take this with food to not to irritate your stomach. Perform low back stretching exercises as needed. Heat may also help. All discharge instructions reviewed with patient and/or family. Voiced understanding. KATHY ROJAS DO October 13, 2022 22:37
[2022-10-13] MEDS ORDERED: KETOROLAC 15 MG/ML VIAL IM ONE (22:45)
[2022-10-13 22:50] LABS: BILIRUBIN,URINE NEGATIVE (NEGATIVE); CLARITY,URINE SL CLOUDY; COLOR,URINE YELLOW; GLUCOSE, URINE (UA) NEGATIVE (NEGATIVE); KETONES,URINE NEGATIVE (NEGATIVE); LEUKOCYTE ESTERASE ,URINE NEGATIVE (NEGATIVE); NITRITE,URINE NEGATIVE (NEGATIVE); PROTEIN,URINE NEGATIVE (NEGATIVE)
[2022-10-13 22:58] LABS: BACTERIA,URINE TRACE /HPF; WBC,URINE 0-2 /HPF
[2022-10-13 22:59] LABS: AMORPHOUS SEDIMENT,UR LARGE AMOR PHOSPHATE /LPF
[2022-10-13] MEDS ORDERED: KETO10TA PO (23:14)
[2022-10-13 23:15] VITALS: BP 112/67
== END 2022-10-13 23:15 | disposition home or self-care (01) ==
LOC: EDUNIT# 22:14 → ER 22:15
DX: M54.50 Low back pain, unspecified (principal); N39.0 Urinary tract infection, site not specified
CPT/HCPCS: 81000; 84703; 99284